=== PATIENT | female | born 2000 | race Caucasian/White ===

== ENCOUNTER → 2020-10-22 15:52 | Outpatient (BNVA) | payer SELFPAY | PROVIDERS: Family Provider Family Medicine; PCP Nurse Practitioner Family; Visit Provider Podiatrist Foot & Ankle Surgery | DX: M25.572 Pain in left ankle and joints of left foot (principal) | CPT/HCPCS: 73630 ==

== ENCOUNTER → 2021-01-26 13:18 | Outpatient (BNVA) | payer SELFPAY | PROVIDERS: Family Provider Family Medicine; PCP Nurse Practitioner Family; Visit Provider Podiatrist Foot & Ankle Surgery | DX: M25.572 Pain in left ankle and joints of left foot (principal) | CPT/HCPCS: 73620 ==

== ENCOUNTER → 2021-03-12 15:22 | Outpatient (BNVA) | payer SELFPAY | PROVIDERS: Family Provider Family Medicine; PCP Nurse Practitioner Family; Visit Provider Podiatrist Foot & Ankle Surgery | DX: M25.572 Pain in left ankle and joints of left foot (principal) | CPT/HCPCS: 73660 ==

== ENCOUNTER 2021-07-17 05:46 | Day surgery (SDC) | payer SELFPAY ==
[2021-07-16 10:00] VITALS: BMI 24.5
[2021-07-17] VITALS (8 sets, daily range): BP systolic 103–121; BP diastolic 42–98; PULSE 52–74; RESP 16–20; TEMP 36.1–36.6; O2SAT 95–100
[2021-07-17 06:08] LABS: OR HCG Qualitative Urine Negative (Negative)
--- NOTE | 2021-07-17 06:19 | P.HP_ITS ---
Providers/Chief Complaint Primary Care Provider: Gayle Medina DO History of Present Illness Pleasant 20-year-old female with fibular sesamoid fracture of the left foot greater than 1 year of pain and failed conservative management consisting of fracture care with extended period of time greater than 6 weeks of nonweightbearing and offloading. Sesamoid fracture is failed to heal and causes pain with standing and walking and everyday activity. She presents for surgical consultation. Is accompanied by her mother. Patient denies any subjective nausea, vomiting, fever, chills, shortness of breath or chest pain. Review of Systems General: Reports: 10 or more systems reviewed and unremarkable except in HPI and below Const: Denies: fever(s) or chills Eyes: Denies: change in vision Card: Denies: chest pain or palpitations Resp: Denies: dyspnea or productive cough GI: Denies: abdominal pain, nausea or vomiting : Denies: flank pain Musc: Reports: extremity pain Skin/Breast: Denies: rash Neuro: Denies: numbness in extremities, sensory changes or frequent falls Psych: Denies: suicidal ideation Juvenal/Lymph: Denies: easy bruising Medications/Allergies Home Medications Medication Instructions Recorded Confirmed Last Taken Type No Known Home Medications 10/22/20 03/12/21 Unknown History Allergies Allergy/AdvReac Type Severity Reaction Status Date / Time No Known Allergies Allergy Verified 03/12/21 15:16 PFSH PFSH: Social History Smoking and tobacco status: never smoked Female Reproductive History: Date of last menstrual period: 07/13/21 Vital Signs Vitals Signs: Last Vital Signs Temp 97.9 F 07/17/21 06:01 Pulse 52 L 07/17/21 06:01 Resp 16 07/17/21 06:01 BP 121/73 07/17/21 06:01 Pulse Ox 100 07/17/21 06:01 Weight: Weight last 48 hrs Weight 130 lb Physical Exam Narrative: EXAM NARRATIVE: Patient is alert and oriented ?3 and in no acute distress.? The following is a focused bilateral lower extremity exam. VASCULAR: Dorsalis pedis and posterior tibial arteries palpable +2.? Capillary refill time less than 3 seconds to the distal hallux bilaterally. Calf is supple and nontender proximally and distally.? No pedal edema appreciated.? Pedal hair growth present. NEUROLOGICAL: Epicritic and protopathic sensations grossly intact to the lower extremities.? +2 Achilles tendon reflex noted bilaterally.? Negative Tinel sign upon percussion of lower extremity nerves. DERMATOLOGICAL: Lower extremity skin is well-hydrated, normal texture and turgor.? There are no open sores or lesions noted to the lower extremities.? No erythema or ecchymosis present to the bilateral legs and feet. MUSCULOSKELETAL: Pain to palpation at the left fibular sesamoid and pain with dorsiflexion of the left first metatarsophalangeal joint.? Muscle strength 5 out of 5 in all 3 cardinal planes to the bilateral foot and ankle. CARDIOVASCULAR: S1, S2, normal rate, normal rhythm. Dorsalis pedis and posterior tibial arteries palpable. LUNGS: Clear to auscltation, no use of acessory muscles, no crackles or wheezes. A&P Assessment and plan (1) Left foot pain: Status: Acute (2) Closed fracture of sesamoid bone of left foot: Status: Acute Qualifiers: Encounter type: subsequent encounter Fracture healing: with nonunion Qualified Code(s): S92.812K - Other fracture of left foot, subsequent encounter for fracture with nonunion Plan Nonunion of left fibular sesamoid fracture pain for greater than 1 year and failed conservative treatments of offloading utilizing crutches, knee scooter and cam boot for greater than 6 weeks. She also supplemented with vitamin D3, calcium and vitamin C. Patient is athletic, very active currently in college. Her pain is affecting her every day life. Like to discuss surgical options. My recommendation was to excise the fracture fragment of the fibular sesamoid this is the proximal portion and inspect the main fibular sesamoid with plan be to excise if there is any avascular necrosis. Discussed surgical incision planning, surgical approach, recovery and risks which include but are not limited to pain, bleeding, numbness, infection, painful scar, failure to alleviate pain, chronic numbness, chronic swelling, damage to adjacent soft tissue structures, hallux varus, hallux valgus, floating toe, altered mechanics and need for further surgical intervention. Patient is n.p.o. since midnight. Covid screening negative. hCG negative. She is accompanied by her mother. Wishes to proceed. No guarantees written, expressed or implied. Sesamoidectomy left foot 07/17/2021, MAC anesthesia, duration of procedure 30 minutes. Santi gonzalez. Will follow-up 3 weeks in podiatry clinic for suture removal. Coding Level of Care Code Acute Director Of Midwifery/Staff Midwife for [facility] Fwd Diagnoses Left foot pain M79.672 Closed fracture of sesamoid bone of left foot S92.812K Encounter type: subsequent encounter Fracture healing: with nonunion
[2021-07-17] MEDS: sodium chloride 0.9% 1,000 ML 30 ML IV (06:39)
--- NOTE | 2021-07-17 06:40 | ANES.PREANE2 ---
Pre-Anesthetic Assessment Height/Weight: Height 1.55 m Weight 58.967 kg Temp Pulse Resp BP Pulse Ox 97.9 F 52 L 16 121/73 100 07/17/21 06:01 07/17/21 06:01 07/17/21 06:01 07/17/21 06:01 07/17/21 06:01 Preop Diagnosis: Left foot sesamoid fracture Operation Date: 07/17/21 07:00 Proposed Procedures p [id number](Left) - Paras Ramos DPM Familial anesthetic complications: none Was Beta Gail taken within 24 hours: N/A Was Clonidine taken within 24 hours: N/A Last intake: Intake Last Liquid Date 07/16/21 Last Liquid Time 22:00 Last Solid Date 07/16/21 Last Solid Time 19:00 Social No alcohol and No tobacco Exam alert, oriented x 3, clear to auscultation bilaterally and regular rate & rhythm Airway Mallampati: Class I Dentition: chipped Anesthetic Plan ASA status: 1 Anesthesia: MAC Medications/Allergies Home Medications Medication Instructions Recorded Confirmed Last Taken Type hydrocodone 10 mg-acetaminophen 1 tab PO Q6H #10 tab 07/17/21 Unknown Rx 325 mg tablet Allergies Allergy/AdvReac Type Severity Reaction Status Date / Time No Known Allergies Allergy Verified 03/12/21 15:16 Current Medications Generic Name Dose Route Start Last Admin Trade Name Freq PRN Reason Stop Dose Admin Sodium Chloride 1,000 mls @ 30 mls/hr 07/17/21 06:45 07/17/21 06:39 Sodium Chloride 0.9% IV 07/18/21 06:44 30 mls/hr .Q24H JONI Administration PFSH Anesthesia Social History Smoking and tobacco status: never smoked Female Reproductive History Date of last menstrual period: 07/13/21 Data Anesthesia Cardiac Studies: No Data to Display
--- NOTE | 2021-07-17 06:41 | W.PM.OPSUD ---
Surgery/Procedure H&P Update DATE OF PROCEDURE: July 17, 2021 DATE H&P PERFORMED: 07/17/21 CHANGES TO PREVIOUS DOCUMENTATION: None PREOP DIAGNOSIS: Left foot sesamoid fracture PLANNED PROCEDURE: Operation Date: 07/17/21 07:00 Proposed Procedures p [id number](Left) - Paras Ramos DPM
--- NOTE | 2021-07-17 06:48 | XR_ITS ---
WS: [id number] XR foot LT min 3V* [id number] REASON FOR EXAM: Partial fibular sesamoidectomy FINDINGS: There has been partial resection (medial aspect) of the sclerotic lateral most sesamoid (fibular) und erlying the first metatarsal phalangeal joint. A small sclerotic fragment is seen proximal to the par tially resected sesamoid. XR/XR foot LT min 3V* [id number] IMPRESSION: Postoperative left foot as above.
[2021-07-17] MEDS: lidocaine 1% INJ 20 mL SUBCUT (07:19)
--- NOTE | 2021-07-17 07:45 | P.OP_ITS ---
Operative Report Date of procedure: July 17, 2021 Pre-op diagnosis: Left fibular sesamoid fracture Post-op diagnosis: Same Post-op findings: Left fibular sesamoid fracture Procedure done: Left foot sesamoidectomy Implants: 4-0 Vicryl, 3-0 Prolene Surgeon: Paras Ramos D.P.M. Full Time Staff Interpreter: Terence Estimated blood loss: Less than 5 18 IV fluids: 0 Urine output: 0 Complications: None Findings: None Brief History: See update H&P at today's visit for history. Procedure: Under mild sedation the patient was brought to the operating room and remained on the gurney in supine position. A timeout was performed. Anesthesia was then administered by the anesthesia service. Local anesthesia injected by myself consisting of 30 cc of one-to-one mixture 1% lidocaine and 0.5% Marcaine plain and a left Brower block fashion. Well-padded pneumatic tourniquet applied to the left ankle. The left lower extremity was then scrubbed, prepped and draped utilizing normal aseptic technique. Left foot was extenuated with an Esmarch bandage and the tourniquet inflated to 250 mmHg. Attention was directed to the left plantar forefoot at the level of the first and second metatarsal heads and at the position directly at the interspace to avoid bony prominence and excessive weightbearing on a plantar incision a linear longitudinal incision was made with #15 blade through skin with dissection carried down through subcutaneous tissue down to the layer of the flexor houses longus and brevis as well as plantar fascia at the sesamoid apparatus, care was taken to retract and preserve neurovascular and tendinous structures. All bleeders were ligated and cauterized as necessary. Linear capsulotomy was performed directly over the fibular sesamoid and the proximal portion had a loosely and detached fracture fragment without any interval of healing and some poor density at the fracture fragment this was excised and passed from the operative field. Incision was flushed with saline solution. The remaining body the fibular sesamoid was inspected and noted to have appropriate density and color. Tendinous and capsular structures reapproximated utilizing 4-0 Vicryl and skin reapproximated utilizing 3-0 Prolene. Incision site dressed with Adaptic, sterile 4 x 4, Kerlix and Demetrius wrap followed by application of postop shoe. Tourniquet was deflated and a prompt hyperemic response was noted to the distal digits of the left foot. Patient tolerated the procedure and anesthesia well and was transferred to the PACU with vital signs stable and vascular status intact. Following a period of postoperative monitoring she will be discharged home is to be nonweightbearing to the left foot was given at home care instructions and follow-up on discharge paperwork.
--- NOTE | 2021-07-17 07:50 | W.PM.OPSUD ---
Surgery/Procedure H&P Update DATE OF PROCEDURE: July 17, 2021 DATE H&P PERFORMED: 07/17/21 CHANGES TO PREVIOUS DOCUMENTATION: None PREOP DIAGNOSIS: Left foot sesamoid fracture PLANNED PROCEDURE: Operation Date: 07/17/21 07:00 Proposed Procedures p [id number](Left) - Paras Ramos DPM
== END 2021-07-17 09:12 | disposition home or self-care (01) ==
PROVIDERS: PCP Family Medicine; Visit Provider Podiatrist Foot & Ankle Surgery
PROC: (CPT 28315; principal; 2021-07-17 07:00)
DX: S82.402A Unspecified fracture of shaft of left fibula, initial encounter for closed fracture (principal); X58.XXXA Exposure to other specified factors, initial encounter
CPT/HCPCS: 28315; 73630; 81025; 84703; J0690; J2250; J2704; J3010; J3490; J7030

== ENCOUNTER → 2021-08-11 14:51 | Outpatient (BNVA) | payer SELFPAY | PROVIDERS: PCP Family Medicine; Visit Provider Podiatrist Foot & Ankle Surgery | DX: S92.812D Other fracture of left foot, subsequent encounter for fracture with routine healing (principal); X58.XXXD Exposure to other specified factors, subsequent encounter; Z98.890 Other specified postprocedural states | CPT/HCPCS: 73630 ==

== ENCOUNTER → 2022-01-27 16:22 | Outpatient (BNVA) | payer SELFPAY | PROVIDERS: PCP Family Medicine; Visit Provider Nurse Practitioner Family | DX: N89.8 Other specified noninflammatory disorders of vagina (principal) | CPT/HCPCS: 87070; 87106; 87205 ==

== ENCOUNTER → 2022-10-04 09:14 | Outpatient (BNVA) | payer SELFPAY | PROVIDERS: PCP Nurse Practitioner Family; Visit Provider Nurse Practitioner Family | DX: R50.9 Fever, unspecified (principal); J06.9 Acute upper respiratory infection, unspecified | CPT/HCPCS: 87400; 87426; 87880 ==